=== PATIENT | male | born 1965 | race Caucasian/White ===

== ENCOUNTER 2022-05-11 08:33 | Inpatient (IN) | payer OTHER ==
[2022-05-11] MEDS ORDERED: LIDOCAINE 5% PATCH TOPICAL STA (08:48)
[2022-05-11] MEDS ORDERED: KETOROLAC 15 MG/ML 1 ML VIAL IM STA (08:48)
[2022-05-11] MEDS ORDERED: methocarbamoL 500 MG TAB PO STA (08:48)
[2022-05-11] MEDS ORDERED: HYDROcodone/APAP 7.5-325MG 1 EACH TAB PO ONE (08:50)
--- NOTE | 2022-05-11 08:56 | ED ---
General Adult HPI - General Chief complaint: Back Pain/Injury Stated complaint: Back pain, pinch nerve Time Seen by Provider: 05/11/22 08:39 Source: patient, RN notes reviewed, old records reviewed Mode of arrival: ambulatory Limitations: no limitations - History of Present Illness Initial comments: Patient is an 18-year-old female with past medical history remarkable for lumbar back surgery, hyperlipidemia who presents emergency Department complaining of left-sided back pain with radiation down the posterior aspect of his left leg. Does have a history of lumbar spine surgery, with residual tingling and numbness along the lower aspect of the left leg and a little bit on the right leg. States that 2 days ago Claude brank of the top of his car when he suddenly experienced left-sided back pain. States this only gotten worse. States the pain radiates down the posterior aspect of his left leg. Denies pain in the midline of the spine. States the pain is gone so severe that he is having difficulty walking and moving. Denies urinary or bowel incontinence or retention. Denies saddle anesthesias. Denies lower extremity focal weakness. Is able to pinpoint the pain over the left paraspinal muscles as well as left sided posterior pelvic rim. Patient otherwise has no acute complaints at this time. Presents for further evaluation. Believes he pinched a nerve. - Related Data Home Medications Medication Instructions Recorded Confirmed Ezetimibe [Zetia] 10 mg PO DAILY 05/11/22 05/11/22 Rosuvastatin Calcium 5 mg PO DAILY 05/11/22 05/11/22 Allergies Allergy/AdvReac Type Severity Reaction Status Date / Time No Known Allergies Allergy Verified 05/11/22 08:39 Review of Systems ROS Statement: Those systems with pertinent positive or pertinent negative responses have been documented in the HPI. Review of Systems: CONST: Denies fever EYES: Denies blurry vision ENT: Denies nasal congestion C/V: Denies Chest pain RESP: Denies shortness of breath GI: Denies abdominal pain : Denies dysuria SKIN: Denies rash. MSK: Endorses back pain. NEURO: Denies headache ROS Other: All systems not noted in ROS Statement are negative. Past Medical History Past Medical History: Hyperlipidemia Additional Past Medical History / Comment(s): back pain History of Any Multi-Drug Resistant Organisms: None Reported Past Surgical History: Back Surgery Past Psychological History: No Psychological Hx Reported Smoking Status: Never smoker Past Alcohol Use History: None Reported Past Drug Use History: None Reported General Exam - General Exam Comments Initial Comments: General: Appears in moderate distress secondary to left-sided back pain. HEAD: Normal with no signs of head trauma. EYES: EOMI ENT: Hearing grossly intact RESPIRATORY: Respiratory distress. Clear breath sounds bilaterally. C/V: Regular rate and rhythm. S1 and S2 auscultated. Peripheral pulses 2+ intact throughout. ABD: Abdomen is soft, nontender, nondistended. EXT:Left sided paraspinal muscle tenderness. Localized to the left lateral back. No midline cervical, thoracic, lumbar spine tenderness palpation. Somewh at tender to palpation in the left paraspinal muscles in the lower lumbar spine as well as along the pelvic brim. Radiates into left buttock. worsening pain with movement of left lower extremity. SKIN: No rashes or lesions observed on exposed skin. NEURO: Alert and oriented 4. No focal acute sensory or strength deficits. No saddle anesthesia. Limitations: no limitations Course Vital Signs 05/11/22 08:37 Temperature 98 F Pulse Rate 118 H Respiratory 18 Rate Blood Pressure 139/78 O2 Sat by Pulse 97 Oximetry Medical Decision Making - Medical Decision Making Based on the patient's presentation and physical exam, I'm concerned for lumbar spine injury or nerve compression. He seems to have weakness in the left leg but mostly secondary to pain. No other red flag symptoms at this time including lack of saddle anesthesias or urinary or bowel incontinence or poor control. I did discuss with him that I would like to obtain CT imaging to evaluate his spine and pelvis. He was in agreement with this plan. May require inpatient admission for MRI due to the extreme pain that he has been with any ambulation. Is given analgesia medications. There was a delay in obtaining CT imaging due to critical patient's presenting, but was positive for disc herniation at L4-L5 which is known with some mild to moderate central canal stenosis. There is also stenosis of the left neural foramen. CT pelvis shows no acute findings. On reevaluation, patient is still in extreme pain. Pain with any movement or walking. Did offer him observation admission for inpatient MRI which she accepted. Orthopedics will be consulted and patient did request Dr. Montgomery. I consulted the orthopedic surgeon Dr. Valera who is in his group and on-call. MRI was ordered. I spoke with the admitting physician Dr. Fernando who accepted the patient. Patient was admitted in stable condition. Disposition Clinical Impression: Lumbar back pain, Lumbar radiculopathy, Lumbar disc herniation Disposition: ADMITTED IP TO THIS HOSP Condition: Stable Time of Disposition: 12:00
--- NOTE | 2022-05-11 10:38 | CT ---
EXAMINATION TYPE: CT lumbar spine wo con CT DLP: 1081 mGycm, Automated exposure control for dose reduction was used. DATE OF EXAM: 05/11/2022 10:24 AM COMPARISON: CT pelvis of the same day. CLINICAL INDICATION:Male, 56 years old with history of pain, history of surgery; PHH, Low back pain, no injury. TECHNIQUE: Multiple axial images were obtained from the midportion of T11 through the sacroiliac dee nts. Soft tissue and bone windows in coronal and sagittal planes were obtained and reviewed. 3-D ref ormats of the bones were created on a separate workstation and submitted for review. FINDINGS: Alignment: There are 5 lumbar type vertebral bodies within normal alignment. Bone: No evidence of fracture is identified. Discs: T12-L1: No spinal canal or neural foraminal stenosis is identified. L1-L2: No spinal canal or neural foraminal stenosis is identified. L2-L3: No spinal canal or neural foraminal stenosis is identified. L3-L4: No spinal canal or neural foraminal stenosis is identified. L4-L5: Broad-based disc bulge without significant effacement of thecal sac. No neural foraminal sten osis. L5-S1: Central disc herniation with mild to moderate effacement of anterior thecal sac. Mild narrowin g of the left neural foramen. Other: Subcentimeter hypodensity within the right hepatic lobe which is too small to characterize. IMPRESSION: 1. No evidence of fracture of the lumbar spine. 2. Disc herniation L4-L5 with mild to moderate central canal stenosis. Additionally there is mild brandan nosis of the left neural foramen. This can be further evaluated on MRI lumbar spine without IV contra st.
--- NOTE | 2022-05-11 10:42 | CT ---
EXAMINATION TYPE: CT pelvis wo con CT DLP: 365.7 mGycm, Automated exposure control for dose reduction was used. DATE OF EXAM: 05/11/2022 10:24 AM COMPARISON: CT lumbar spine of the same date. CLINICAL INDICATION:Male, 56 years old with history of pain, history of surgery; Low back pain, no in jury. TECHNIQUE: Standard CT of the pelvis without IV or oral contrast. Lack of IV or oral contrast limit s evaluation of solid and hollow organ viscera. FINDINGS: BLADDER: Unremarkable REPRODUCTIVE: Unremarkable. VISUALIZED BOWEL: No focal wall thickening or surrounding inflammatory changes. The appendix is withi n normal limits. No evidence of bowel obstruction. PERITONEUM: No evidence of pneumoperitoneum or free fluid. VASCULATURE: Visualized portions unremarkable. MUSCULOSKELETAL: No acute osseous abnormalities. No concerning osseous lesion. Please refer to dedica sophia lumbar spine for findings. LYMPH NODES: No gross evidence for lymphadenopathy. SOFT TISSUE/ABDOMINAL WALL: Small fat filled lumbrical hernia. IMPRESSION: 1. No acute pelvic process. 2. Please refer to concurrent dedicated lumbar spine for findings.
[2022-05-11] MEDS ORDERED: GABAPENTIN 100 MG CAP PO STA (11:58)
[2022-05-11] MEDS ORDERED: NALOXONE 0.4 MG/ML 1 ML VIAL IV PRN (12:26)
[2022-05-11] MEDS ORDERED: ONDANSETRON 4 MG/2 ML VIAL IVP PRN (13:06)
[2022-05-11] MEDS ORDERED: ACETAMINOPHEN TAB 325 MG TAB PO PRN (13:06)
[2022-05-11 13:12] LABS: Basophils # (A) 0.1 k/uL (0-0.2); Basophils % (A) 1 %; Eosinophils % (A) 1 %; HCT 48.7 % (39.0-53.0); Lymphocytes # (A) 1.5 k/uL (1.0-4.8); Lymphocytes % (A) 22 %; MCH 30.3 pg (25.0-35.0); MCHC 32.9 g/dL (31.0-37.0); MCV 92.1 fL (80.0-100.0); Mean Platelet Volume 6.7; Monocytes # (A) 0.4 k/uL (0-1.0); Monocytes % (A) 5 %; Neutrophils # (A) 4.7 k/uL (1.3-7.7); Neutrophils % (A) 69 %; Platelet Count 238 k/uL (150-450); RBC 5.29 m/uL (4.30-5.90); RDW 12.4 % (11.5-15.5); WBC 6.9 k/uL (3.8-10.6)
[2022-05-11 13:23] LABS: Potassium 4.4 mmol/L (3.5-5.1)
[2022-05-11] MEDS: MORPHINE SULFATE 4 MG/ML SYRINGE IVP PRN ×3 (13:26→22:43)
--- NOTE | 2022-05-11 15:57 | MR ---
EXAMINATION TYPE: MR lumbar spine wo con DATE OF EXAM: 05/11/2022 COMPARISON: Same-day CT lumbar spine study HISTORY: Lumbar pain, radiculopathy TECHNIQUE: Multiplanar, multisequence imaging of the lumbar spine is performed without IV contrast. FINDINGS: Sagittal images of the lumbar spine show vertebral body heights and alignment to remain sat isfactory. Multilevel disc desiccation with mild to moderate disc space narrowing L5-S1 level. The c onus medullaris is normal in position and signal ending at T12-L1 disc space level. The bone marrow signal intensity is within normal limits. Axial images show T12-L1 through L2-L3 levels to appear within normal limits. Axial images at the L3-L4 level shows a right lateral disc protrusion with annular tear causing mild to moderate inferior left-sided neural foraminal narrowing. Axial images at L4-L5 level show mild to moderate facet arthropathy bilaterally mildly effacing poste rior lateral thecal sac. Bilateral neural foramina are patent. Axial images at L5-S1 level shows focal left paracentral/foraminal spur disc complex effacing the ant erolateral thecal sac along with lateral recess and the central left S1 nerve seen best on axial imag e 3 and 4. Focal moderate to severe left-sided neural foraminal narrowing sagittal image 5 and axial image 3. Paraspinal muscle bulk is preserved. IMPRESSION: Some degenerative change in the mid to lower lumbar spine as detailed above with most pro minent findings at L5-S1 level. Effacement of the central left S1 nerve is present. Correlate clinica lly.
--- NOTE | 2022-05-11 16:16 | P.HPIM ---
History of Present Illness H&P Date: 05/11/22 Chief Complaint: back pain Patient is a 56-year-old male with a history of lumbar back surgery, hyperlipidemia, who presents emergency department complaining of lower back pain for the last 4 days. He was in his normal state of health Sunday when he was attempting to remove a kayak from his car. He experienced sudden onset lower back pain, more so on the left side that radiated down to his leg. The pain continued to worsen over the following 2 days, yesterday he went to a chiropractor and had musculoskeletal manipulation of his lower back but this unfortunately worsened his pain. This morning he was in excruciating pain and was having difficulty ambulating. He did not have any focal weakness however. He does have residual numbness along the lower aspect of his left leg from previous surgery which has not changed. Denies any saddle anesthesia, no loss of bowel or bladder control. He appeared to be in significant distress in the ED and has required several doses of narcotics to control his pain. He will be admitted for an MRI of the lumbar with orthopedic surgery consult. Review of Systems Constitutional: Reports as per HPI Past Medical History Past Medical History: Hyperlipidemia Additional Past Medical History / Comment(s): Numbness/tingling lower L leg and alittle in R leg from previous back problems History of Any Multi-Drug Resistant Organisms: None Reported Past Surgical History: Back Surgery Additional Past Surgical History / Comment(s): Lumbar surgery Past Anesthesia/Blood Transfusion Reactions: No Reported Reaction Smoking Status: Never smoker - Past Family History Father Family Medical History: Coronary Artery Disease (CAD) Mother Additional Family Medical History / Comment(s): Mother has a pacemaker. Medications and Allergies Home Medications Medication Instructions Recorded Confirmed Type Ezetimibe [Zetia] 10 mg PO DAILY 05/11/22 05/11/22 History Rosuvastatin Calcium 5 mg PO DAILY 05/11/22 05/11/22 History Allergies Allergy/AdvReac Type Severity Reaction Status Date / Time No Known Allergies Allergy Verified 05/11/22 08:39 Physical Exam Osteopathic Statement: *. No significant issues noted on an osteopathic structural exam other than those noted in the History and Physical/Consult. Vitals: Vital Signs Temp Pulse Resp BP Pulse Ox 05/11/22 08:37 98 F 118 H 18 139/78 97 Intake and Output 05/11/22 05/11/22 05/11/22 06:59 14:59 22:59 Other: Weight 85.275 kg - Constitutional General appearance: average body habitus, cooperative, mild distress - EENT Eyes: EOMI, PERRLA - Neck Neck: normal ROM - Respiratory Respiratory: bilateral: CTA - Cardiovascular Rhythm: regular Heart sounds: normal: S1, S2 Abnormal Heart Sounds: no systolic murmur - Gastrointestinal General gastrointestinal: no distended, normal bowel sounds, no tenderness - Integumentary Integumentary: no cellulitis, no cyanotic, no jaundiced - Neurologic Neurologic: CNII-XII intact - Musculoskeletal Musculoskeletal: strength equal bilaterally, no right sided weakness, no left sided weakness - Psychiatric Psychiatric: A&O x's 3, appropriate affect Results CBC & Chem 7: 05/11/22 12:56 05/11/22 12:56 Thrombosis Risk Factor Assmnt - Choose All That Apply Any of the Below Risk Factors Present?: Yes Each Factor Represents 1 point: Age 41-60 years, Obesity (BMI >25) Other Risk Factors: No Other congenital or acquired thrombophilia - If yes, enter type in comment: No Thrombosis Risk Factor Assessment Total Risk Factor Score: 2 Thrombosis Risk Factor Assessment Level: Low Risk Assessment and Plan Assessment: #Intractable lower back pain -Patient has a history of radiculopathy and underwent lumbar back surgery a few years ago -No alarming signs red flags the moment, he denies any saddle anesthesia, no focal lower extremity weakness. Patient has residual left lower extremity numbness which is mild and is unchanged from his last surgery. He has had no loss of bowel or bladder control -CT of the lumbar spine shows L4-L5 disc herniation -MRI of the spine is pending -Continue pain control -Appreciate further recommendations from orthopedic surgery # Hyperlipidemia -Continue statin and ezetimibe DVT prophylaxis Anticipated discharge home in 24 hours Time with Patient: Greater than 30
[2022-05-11] MEDS: KETOROLAC 15 MG/ML 1 ML VIAL IVP PRN (18:26)
[2022-05-12] MEDS: KETOROLAC 15 MG/ML 1 ML VIAL IVP PRN ×3 (02:33→21:36)
[2022-05-12] MEDS: MORPHINE SULFATE 4 MG/ML SYRINGE IVP PRN ×3 (04:22→14:30)
--- NOTE | 2022-05-12 11:30 | P.PCN ---
Date of Procedure: 05/12/22 Description of Procedure: Procedure: 1. L4-L5 Epidural steroid injection under fluoroscopic guidance #1 2. Lumbar epidurogram 3. Left sacroiliac joint injection #1 PREOPERATIVE DIAGNOSIS: Lumbar degenerative disc disease, and Lumbar radiculopathy. POSTOPERATIVE DIAGNOSIS: Lumbar degenerative disc disease, and Lumbar radiculopathy. SURGEON: Francseca Redding ANESTHESIA: Local with 1% lidocaine, and IV sedation : None EBL: None. Specimen removed: None Fluoroscopic image: saved to electronic medical records PROCEDURE INDICATION: The patient had history of Lumbar degenerative disc disease and Lumbar radiculopathy. Failed to conservative therapy. Presented for epidural steroid injection. PROCEDURE DESCRIPTION: The patient was seen and identified in the preoperative area. Risks, benefits, complications, and alternatives were discussed with the patient. The patient agreed to proceed with the procedure and signed the consent. Patient had IV , and vital signs were stable. Patient was taken to the procedure area, and time out was completed. The patient was placed in the prone position on procedure table and a pillow was placed under the abdomen to reduce lumbar lordosis. The lumbosacral area was prepped and draped in the usual sterile fashion. Critical pause was taken. Vital signs were closely monitored during the procedure. Using anterior-posterior fluoroscopy, the L4-L5 interlaminar space was identified, and skin and deeper tissues were localized with 1% lidocaine. Using anterior-posterior fluoroscopy, lateral fluoroscopy, and [id number] technique, a 20 gauge 3.5 Tuohy epidural needle entered the epidural space. After negative aspiration of CSF and blood with no paresthesias, 2 ml of [id number] contrast dye was injected and an excellent epidurogram was seen. Again after negative aspiration of CSF and blood with no paresthesias, 10 mL of block solution was injected into the epidural space. Block solution contained 40 mg of Depo-Medrol, 3 mL of 1% lidocaine preservative-free, and 6 mL of preservative- free normal saline. Needle was withdrawn intact, skin was cleansed, and bandages were applied. COMPLICATIONS: None. PREOPERATIVE DIAGNOSIS: Left Side Sacroiliac joint dysfunction POSTOPERATIVE DIAGNOSIS: Left side Sacroiliac joint dysfunction. PROCEDURES: 1. Left side Sacroiliac joint steroid injection #1 2. Sacroiliac joint arthrogram. SURGEON: Francesca Redding ANESTHESIA: Local and IV sedation : None. EBL: None. Specimen removed: None Fluoroscopic image: saved to electronic medical records. PROCEDURE INDICATIONS: This patient with a history of chronic low back pain, and sacroiliac joint dysfunction. Patient tried conservative therapy. Came here for intervention management. PROCEDURE DESCRIPTION: After the lumbar epidural steroid injection in the o perating room. The lumbosacral area was prepped and draped in the usual sterile fashion. Critical pause was taken. Vital signs were closely monitored during the procedure. For the left side, the fluoroscopic camera was placed in right oblique view and left SI joint lower pole was identified. Skin entry point was infiltrated with 1% lidocaine and 22-gauge 3.5 inch spinal needle was introduced into the inferior one-third of SI joint and after penetrating into the joint arthrogram was done. 0.5 ml of [id number] contrast was injected after negative aspiration for blood, and air and negative for paresthesia. Good spread of the contrast into the SI joint has been seen. Then again after negative aspiration of spinal fluid and blood and negative for neurological symptoms, 3 mL of a solution conta ining total 2.5 mL of 1% preservative-free lidocaine mixed with 40 mg of Depo- Medrol was injected. Needle was withdrawn intact. Skin was cleansed, and bandages were applied. COMPLICATIONS: None. DISPOSITION / PLANS: The patient was placed in a supine position and transferred to the recovery area in a stable condition for observation. Patient was discharged from the recovery room after meeting discharge criteria. discharge instructions given to the patient by the staff to inpatient RN. The patient was reexamined prior to discharge. He can follow up with the pain clinic as needed.
--- NOTE | 2022-05-12 12:04 | FL ---
Fluoroscopy HISTORY: Pain 7 seconds fluoroscopy time supplied to the referring clinician. 5 intraoperative C-arm images docume nt the procedure. See dictated report from anesthesia.
[2022-05-12] MEDS ORDERED: MIDAZOLAM 2 MG/2 ML VIAL ONE (13:04)
[2022-05-12] MEDS ORDERED: ROPIVACAINE 5 MG/ML 30 ML VIAL ONE (13:04)
[2022-05-12] MEDS ORDERED: PROPOFOL 10 MG/ML 20 ML VIAL IV ONE (13:04)
[2022-05-12] MEDS ORDERED: GLYCOPYRROLATE 0.2 MG/ML 2 ML VIAL ONE (13:04)
[2022-05-12] MEDS ORDERED: PHENYLEPHRINE-0.9% NACL SYG 1,000 MCG/10 ML SYRINGE ONE (13:04)
[2022-05-12] MEDS ORDERED: SUCCINYLCHOLINE CHLORIDE 100 MG/5 ML SYR IV ONE (13:04)
[2022-05-12] MEDS ORDERED: LIDOCAINE 2% INJ 20 MG/ML (2 ML VIAL) ONE (13:04)
[2022-05-12] MEDS ORDERED: NEOSTIGMINE 1 MG/ML 10 ML VIAL ONE (13:04)
[2022-05-12] MEDS ORDERED: DEXAMETHASONE SOD PHOSPHATE 4 MG/ML 1 ML VIAL ONE (13:04)
[2022-05-12] MEDS ORDERED: ROCURONIUM 10 MG/ML (5 ML VIAL) IV ONE (13:04)
--- NOTE | 2022-05-12 13:04 | P.CNOR ---
History of Present Illness - [facility] Consult date: 05/12/22 Requesting physician: Vladimir Henry Consult reason: low back pain, other (L5-S1 herniated nucleus pulposus with left lower extremity radiculopathy) History of present illness: Patient is a very pleasant 56-year-old male who is seen and examined at bedside for further evaluation of his lumbar spine. Patient states on 05/08/2022, he was pulling a kayak out of his vehicle. He began to experience increased low back pain with left lower extremity radiculopathy. His symptoms continued to worsen throughout Sunday and he had difficulty with mobility at that time. He saw his chiropractor Sunday and following manipulation his symptoms have significantly worsened. He had planned to follow-up with his chiropractor later again Sunday but could not tolerate the pain. He presented to [facility] yesterday for further evaluation. CT and MRI imaging of the lumbar spine was performed. Patient was found to have a large L5-S1 left paracentral disc herniation resulting in severe left neural foraminal stenosis. Dictation from pain management states the patient underwent an L4-5 epidural steroid injection under fluoroscopic guidance and left sacroiliac joint injection. He recently returned back to his room. Since that time he states his left lower extremity pain is finally starting to improve. He has had difficulty with pain control during his admittance to the hospital prior to this injection. Patient does reside in [place]. He has a history of previous L5-S1 left-sided herniation and underwent laminectomy decompression by his surgeon in [place]. He states given the improvement of his symptoms, he would like to continue conservative treatment during his admission to the hospital. It is symptoms continue to be controlled and improve he would like to be discharged home so he can travel back to [place] to follow-up with further treatment with his surgeon in [place]. He denies any specific lower extremity weakness bilaterally. He does state the pain radiates into the left buttock and through his left leg down to the foot. He is urinating without difficulty. He is not experiencing any right lower extremity radiculopathy. He is admitted to medicine. Past Medical History Past Medical History: Hyperlipidemia Additional Past Medical History / Comment(s): Numbness/tingling lower L leg and alittle in R leg from previous back problems History of Any Multi-Drug Resistant Organisms: None Reported Past Surgical History: Back Surgery Additional Past Surgical History / Comment(s): Lumbar surgery Past Anesthesia/Blood Transfusion Reactions: No Reported Reaction Smoking Status: Never smoker - Past Family History Father Family Medical History: Coronary Artery Disease (CAD) Mother Additional Family Medical History / Comment(s): Mother has a pacemaker. Medications and Allergies Home Medications Medication Instructions Recorded Confirmed Type Ezetimibe [Zetia] 10 mg PO DAILY 05/11/22 05/11/22 History Rosuvastatin Calcium 5 mg PO DAILY 05/11/22 05/11/22 History Allergies Allergy/AdvReac Type Severity Reaction Status Date / Time No Known Allergies Allergy Verified 05/11/22 08:39 Physical Examination Osteopathic Statement: *. No significant issues noted on an osteopathic structural exam other than those noted in the History and Physical/Consult. Physical exam: Patient is awake, alert, and oriented 3 Vital signs stable Good chest excursion with deep inspiration and expiration Abdomen soft nontender Examination of lumbar spine reveals skin is intact with no abrasions, lacerations, or bruises; no erythema, purulence or signs of infection Evidence of a well-healed incision along the midline of the lumbosacral spine Evidence of a Band-Aid and intact near the midline of the lumbosacral spine following injection with pain management Dorsiflexion, plantarflexion, and extensor hallucis longus positive sustained bilaterally Motor strength of the lower extremity is 4+/5 including extensor hallucis longus on the left Rest of the lower extremity strength is 5/5 bilaterally Patellar reflex 2+ bilaterally and Achilles reflexes 2+ bilaterally No lower extremity hyperreflexia bilaterally Positive straight leg test on the left No signs or symptoms of DVT; no calf pain No pain with internal and external rotation of the hips bilaterally Neurovascularly intact Results Pertinent studies: MRI of the lumbar spine taken on 05/11/2022: L3-4 right lateral disc protrusion with annular tear; L4-5 facet arthropathy without stenosis; L5-S1 large left paracentral disc herniation, degenerative disc disease, disc desiccation resulting in severe left neural foraminal stenosis CT of the lumbar spine taken on 05/11/2022: L4-5 broad-based disc bulge without stenosis; L5-S1 central disc herniation with left neural foraminal narrowing CT the pelvis taken on 05/11/2022: No acute pelvic process - Labs Labs: H & H 05/11/22 Range/Units 12:56 Hgb 16.0 (13.0-17.5) gm/dL Hct 48.7 (39.0-53.0) % Result Diagrams: 05/11/22 12:56 05/11/22 12:56 Assessment and Plan Assessment: Assessment: #1 lumbar spondylosis without myelopathy #2 lumbar disc herniation #3 lumbar [id number]-[id number] #4 left sacroiliac joint dysfunction #5 myofascial pain syndrome #6 acute on chronic lower back pain L5-S1 recurrent left paracentral herniated nucleus pulposus L5-S1 severe left neural foraminal stenosis L5-S1 disc desiccation and degenerative disc disease Left lower extremity radiculopathy Low back pain L4-5 lumbar facet arthropathy History of previous L5-S1 laminectomy decompression performed in [place] Status post L4-5 epidural steroid injection under fluoroscopic guidance and left sacroiliac joint injection performed on 05/12/2022 Hyperlipidemia Resides out of state in [place] (1) Lumbar back pain with radiculopathy affecting left lower extremity Current Visit: Yes Status: Acute Code(s): M54.16 - RADICULOPATHY, LUMBAR REGION SNOMED Code(s): 347703215 (2) Herniated nucleus pulposus, L5-S1, left Current Visit: Yes Status: Acute Code(s): M51.27 - OTHER INTERVERTEBRAL DISC DISPLACEMENT, LUMBOSACRAL REGION SNOMED Code(s): 16638925 (3) DDD (degenerative disc disease), lumbosacral Current Visit: Yes Status: Acute Code(s): M51.37 - OTHER INTERVERTEBRAL DISC DEGENERATION, LUMBOSACRAL REGION SNOMED Code(s): 53841798 (4) Lumbar facet arthropathy Current Visit: Yes Status: Acute Code(s): M47.816 - SPONDYLOSIS W/O MYELOPATHY OR RADICULOPATHY, LUMBAR REGION SNOMED Code(s): 196469765 (5) History of laminectomy Current Visit: Yes Status: Acute Code(s): Z98.890 - OTHER SPECIFIED POSTPROCEDURAL STATES SNOMED Code(s): 339500389 (6) Hyperlipidemia Current Visit: Yes Status: Acute Code(s): E78.5 - HYPERLIPIDEMIA, UN SPECIFIED SNOMED Code(s): 30994991 Plan: Plan: 1. Patient has been experiencing significant left-sided low back pain with left lower extremity radiculopathy since 05/08/2022. His symptoms were significantly exacerbated following chiropractic manipulation on 05/10/2022. He presented to [facility] for further evaluation. Multiple imaging modalities were taken at that time. Lumbar MRI imaging shows evidence of an L5-S1 large left paracentral disc herniation resulting in severe left neural foraminal stenosis. He underwent an injection with pain management today and recently returned to his room. Since that time he states his left lower extremity leg symptoms have improved. He states this is the best his left lower extremity has felt since his admission to the hospital. He is urinating without difficulty. He denies any right lower extremity radiculopathy. He is not experiencing any acute onset lower extremity weakness. He does have some mild weakness with EHL on the left of indeterminate age. He is able to perform active range of motion with EHL on the left independently. He does have a history of previous L5-S1 laminectomy decompression performed in [place]. He does admit to some residual left lower extremity numbness following his previous surgical intervention. Given his improvement in regards to his pain, he would like to continue conservative treatment options. He has not recently followed with his surgeon [place] as his symptoms had been well- controlled following the surgical intervention. Patient states at the bedside if his symptoms continue to be controlled he would like to be discharged home so that he may travel back to [place] with plans to follow-up with his spine surgeon there. We did discuss he should plan to obtain his lumbar MRI imaging on a CD and a written report prior to his discharge home so that he may take it with him to [place] for further evaluation with his surgeon. After further discussion, patient would like to try to avoid surgical intervention during his admission here and [facility]. From an orthopedic spine standpoint, patient is cleared for discharge. If the patie nt's symptoms worsen and he is unable to be discharged for him to be able to return home, we may be contacted for further evaluation. We did discuss based on his symptoms and his imaging, he is a candidate for L5-S1 revision laminectomy decompression with discectomy. 2. Patient will continue to be seen in exam by multiple other medical providers including medicine and pain management 3. Continue pain control with medications as prescribed. We would not plan to prescribe pain medications at the time of discharge as these have been managed by medicine during his admission. Time with Patient: Greater than 30 (Including obtaining history, physical examination, reviewing of imaging, and dictation.)
--- NOTE | 2022-05-12 14:43 | P.PAINCN ---
History of Present Illness - Reason for Consult Consult date: 05/12/22 Lumbar back pain - Chief Complaint Lumbar back pain, and pain radiating to lower extremity - History of Present Illness Mr. López is a very pleasant 56-year-old male residing in [place], came to [place] for vacation- who is seen and examined at bedside for further evaluation of his lumbar back pain, pain radiating to left lower extremity. Patient states on 05/08/2022, he was pulling a kayak out of his vehicle. He began to experience increased low back pain with left lower extremity radiculopathy, causing numbness tingling sensation.. He saw his chiropractor [place] morning and following manipulation his symptoms have significantly worsened. Patient had chiropractic manipulation in the past which helped him. Today he rated his pain is 10 out of 10 in severity when walking. But during the rest with the help of pain medications pain levels are 6-7 out of 10 in severity. Patient is experiencing a lot of discomfort during the interview. Activities making his pain worse, and pain medications helping to some extent. Patient denied any depression, or suicidal tendency. Per patient is very active at home. CT and MRI imaging of the lumbar spine was performed. Patient was found to have a large L5-S1 left paracentral disc herniation resulting in severe left neural foraminal stenosis. He has a history of previous L5-S1 left-sided herniation and underwent decompression by his surgeon in [place]. He states given the improvement of his symptoms, he would like to continue conservative treatment during his admission to the hospital. He denies any specific lower extremity weakness bilaterally. He does state the pain radiates into the left buttock and through his left leg down to the foot. He is urinating without difficulty. He is not experiencing any right lower extremity radiculopathy. Patient denied any side effects of the medication. Patient had a previous L4-L5 lumbar epidural before lumbar back surgery, which helped only for a short period in relieving his pain. Review of Systems 13 point review of Systems , and symptoms negative for chest pain, shortness of breath, change in vision, abdominal pain, diarrhea, extreme fatigue, malaise, fever, skin changes, suicidal/homicidal ideas, bowel incontinence or bladder incontinence. Past Medical History Past Medical History: Hyperlipidemia Additional Past Medical History / Comment(s): Numbness/tingling lower L leg and alittle in R leg from previous back problems History of Any Multi-Drug Resistant Organisms: None Reported Past Surgical History: Back Surgery Additional Past Surgical History / Comment(s): Lumbar surgery Past Anesthesia/Blood Transfusion Reactions: No Reported Reaction Smoking Status: Never smoker - Past Family History Father Family Medical History: Coronary Artery Disease (CAD) Mother Additional Family Medical History / Comment(s): Mother has a pacemaker. Medications and Allergies Home Medications Medication Instructions Recorded Confirmed Type Ezetimibe [Zetia] 10 mg PO DAILY 05/11/22 05/11/22 History Rosuvastatin Calcium 5 mg PO DAILY 05/11/22 05/11/22 History Allergies Allergy/AdvReac Type Severity Reaction Status Date / Time No Known Allergies Allergy Verified 05/11/22 08:39 Physical Exam Vitals: Vital Signs Temp Pulse Pulse Resp BP BP Pulse Ox 05/12/22 08:00 98.1 F 78 16 119/71 96 05/12/22 02:00 98.3 F 73 14 130/82 98 05/11/22 20:00 98.3 F 73 14 130/82 98 05/11/22 17:38 98.1 F 76 18 145/87 98 05/11/22 17:17 79 18 113/73 98 Intake and Output 05/11/22 05/12/22 05/12/22 22:59 06:59 14:59 Other: Voiding Method Urinal # Voids 1 General: Well-developed, well-nourished, no acute distress HEENT: Normocephalic, and atraumatic Neck: Supple, no neck swelling Psychiatric: Appropriate mood, and affect [employer]ICE [employer]: No focal neurological deficits Musculoskeletal: Upper extremity: Normal strength, and range of motion. Sensation grossly intact Lower extremity: Normal strength, but decreased range of motion on left lower extremity secondary to pain. Sensation grossly intact. Dorsalis pedis pulse 2+ bilaterally equal Lumbar spine: Paravertebral tenderness: positive on left side Lumbar facet load test : Unable to perform SLR positive on left side Sacroiliac joint tenderness: Positive on left side Thigh thrust test: Positive on left side SI joint compression test: Positive on left side Fabere test: Positive on left side Results Results: MRI of the lumbar spine taken on 05/11/2022: L3-4 right lateral disc protrusion with annular tear; L4-5 facet arthropathy without stenosis; L5-S1 large left paracentral disc herniation, degenerative disc disease, disc desiccation resulting in severe left neural foraminal stenosis. CT of the lumbar spine taken on 05/11/2022: L4-5 broad-based disc bulge without stenosis; L5-S1 central disc herniation with left neural foraminal narrowing CT the pelvis taken on 05/11/2022: No acute pelvic process CBC & Chem 7: 05/11/22 12:56 05/11/22 12:56 Assessment and Plan Assessment: Assessment: #1 lumbar spondylosis without myelopathy #2 lumbar disc herniation #3 lumbar [id number]-uzro-fvfch #4 left sacroiliac joint dysfunction #5 myofascial pain syndrome #6 acute on chronic lower back pain L5-S1 recurrent left paracentral herniated nucleus pulposus L5-S1 severe left neural foraminal stenosis L5-S1 disc desiccation and degenerative disc disease Left lower extremity radiculopathy Low back pain L4-5 lumbar facet arthropathy History of previous L5-S1 laminectomy decompression performed in [place] Status post L4-5 epidural steroid injection under fluoroscopic guidance and left sacroiliac joint injection performed on 05/12/2022 Hyperlipidemia Resides out of state in [place] Plan: Diagnoses, prognosis, and multiple treatment options including but not limited to physical therapy, interventional therapy, adjunct medication therapy, narcotic medication, and surgical options were discussed with the patient. And all questions were answered to the patient's satisfaction. Patient counseled regarding importance of regular exercise after improved his pain after intervention procedures. consultation : Neurosurgical consultation interventional procedures: Lumbar L4-L5 epidural steroid injection, and left sacroiliac joint injection. Procedure, complications, alternatives discussed with the patient. #8 medications #1 [place] 7.5/325 by mouth Q6 hours as needed for pain #2 Zanaflex 2 mg by mouth every 8 hours as needed for muscle spasm #3 gabapentin 300 mg by mouth every 12 hours for 3 days if tolerated without any drowsy then every 8 hours for lumbar radiculopathy #4 naproxen 500 mg by mouth every 12 hours as needed, recommended to drink plenty of water to minimize kidney insult, and after food intake to minimize gastric irritation. Medication side effects, complications, long-term consequences discussed with the patient. Patient also recommended to try percussion massage device. Time with Patient: Less than 30 PQRS Measure Charge Sheet - Pain Location Lower Back Pharmacological Interventions: PRN Medication PQRS Narrative: Blood Pressure [Right Arm] 119/71 Blood Pressure 113/73 Pain Intensity [Lower Back] 9 Pain Intensity 9 Pain Scale Used Numeric (1 - 10) Scale Used Numeric (1 - 10) Home Medications: Ambulatory Orders Ezetimibe [Zetia] 10 mg PO DAILY 05/11/22 Rosuvastatin Calcium 5 mg PO DAILY 05/11/22
[2022-05-12] MEDS ORDERED: ORPHENADRINE 30 MG/ML 2 ML VIAL IVP STA (17:25)
--- NOTE | 2022-05-12 17:45 | P.PN ---
Subjective Progress Note Date: 05/12/22 Hospital course: Patient is a very pleasant 56-year-old male with a past medical history of hyperlipidemia and lumbar back surgery. He presented to the emergency department on 05/11/22 with a chief complaint of lower back pain. Patient reports he does have a history of lumbar back surgery but has not had any issues in years. Patient states he is in [place] vacationing and while removing the kayak off the roof of his car he experienced sudden onset of lower back pain radiating shooting pains down his left leg. Patient reports this pain persisted and continued to worsen resulting in difficulty with ambulation. He reports chronic residual numbness to the lateral aspect of the left lower leg and left heel which is unchanged and denies any further or worsening numbness or tingling sensations. Patient denies having any involuntary loss of bowel or bladder and denies any saddle anesthesias. CT revealed no evidence of fracture of the lumbar spine showing disc herniation of L4 and L5 with mild to moderate central canal stenosis. Patient was admitted under our services with consultation to pain management [facility] team. MRI lumbar spine without contrast was completed revealing some degenerative changes to the mid and lower lumbar spine from L5 through S1 and defacement of the central left S1 nerve present. Physical exam: Patient seen and fully evaluated at bedside this morning. He reports continued intractable lower back pain resulting in difficulty with ambulation and movement. With pain radiates down left leg, but continues to deny having any n ew or worsening numbness or focal weakness. Patient denies having any involuntary loss of bowel or bladder and denies any saddle anesthesias. Vital signs reviewed and stable. General: Nontoxic, no distress and appears stated age. Derm: Skin warm and dry, normal coloration for ethnicity. Head: Atraumatic, normocephalic and symmetric. Eyes: EOMs intact, no lid lag, and anicteric sclera Mouth: no lip lesions, mucus membranes moist Cardiovascular: regular rate and rhythm with normal S1S2, no murmur, positive posterior tibial pulses bilaterally, and cap refill < 2 seconds. Lungs: Respirations even, regular, and unlabored on room air. Lungs CTA bilaterally, no rhonchi, no rales, no wheezing, and no accessory muscle usage. Abdominal: soft, nontender to palpation, no guarding, no appreciable organomegaly Ext: ROM intact. No gross muscle atrophy, no edema, no contractures Neuro: Speech clear, face symmetrical and CN II-XII grossly intact with no noted focal neuro deficits Psych: Alert and oriented to person, place, time, and situation. Appropriate and pleasant affect. Assessment and Plan of Care: Intractable lower back pain -Orthospine surgery following -Pain management following -MRI lumbar spine without contrast was completed revealing some degenerative changes to the mid and lower lumbar spine from L5 through S1 and defacement of the central left S1 nerve present. -Symptomatic care and pain management -Fall precautions Hyperlipidemia -Heart healthy diet and continue daily medication regimen with Zetia and rosuvastatin. CODE STATUS: Full code DVT prophylaxis: SCDs Discussed with: Patient, patient's family member at bedside, and RN Anticipated discharge date: Possibly tomorrow Anticipated discharge place: Home A total of 35 minutes was spent on the care of this complex patient more than 50% of the time was spent in counseling and care coordination. I reviewed the documentation as provided by the JULIO above, who is the original author of this note. I agree with the documented assessment and plan, with the following changes: none Objective - Vital Signs Vital signs: Vital Signs Temp 98.3 F 05/12/22 02:00 Pulse 73 05/12/22 02:00 Resp 14 05/12/22 02:00 BP 130/82 05/12/22 02:00 Pulse Ox 98 05/12/22 02:00 FiO2 Intake & Output 05/11/22 05/12/22 05/12/22 18:59 06:59 18:59 Weight 85.275 kg Other: # Voids 1 - Labs CBC & Chem 7: 05/11/22 12:56 05/11/22 12:56
[2022-05-12] MEDS: ATORVASTATIN 10 MG TAB PO SCH (18:31)
[2022-05-12] MEDS: EZETIMIBE 10 MG TAB PO SCH (18:31)
[2022-05-12] MEDS: HYDROcodone/APAP 7.5-325MG 1 EACH TAB PO PRN (19:45)
[2022-05-13] MEDS: KETOROLAC 15 MG/ML 1 ML VIAL IVP PRN ×2 (05:48→15:34)
[2022-05-13] MEDS: HYDROcodone/APAP 7.5-325MG 1 EACH TAB PO PRN (07:02)
[2022-05-13] MEDS: EZETIMIBE 10 MG TAB PO SCH (07:03)
[2022-05-13] MEDS: ATORVASTATIN 10 MG TAB PO SCH (07:04)
[2022-05-13] MEDS: ENOXAPARIN 40 MG/0.4 ML SYRINGE SQ SCH (07:04)
[2022-05-13] MEDS: MORPHINE SULFATE 4 MG/ML SYRINGE IVP PRN (08:13)
[2022-05-13] MEDS ORDERED: ORPHENADRINE 30 MG/ML 2 ML VIAL IVP STA (09:30)
[2022-05-13] MEDS ORDERED: HYDROmorphone 1 MG/ML 1 ML SYRINGE IVP STA (09:31)
[2022-05-13] MEDS: diazePAM 5 MG TAB PO PRN (15:34)
--- NOTE | 2022-05-13 16:35 | P.PN ---
Subjective Progress Note Date: 05/13/22 Hospital course: Patient is a very pleasant 56-year-old male with a past medical history of hyperlipidemia and lumbar back surgery. He presented to the emergency department on 05/11/22 with a chief complaint of lower back pain. Patient reports he does have a history of lumbar back surgery but has not had any issues in years. Patient states he is [place] [facility] and while removing the kayak off the roof of his car he experienced sudden onset of lower back pain radiating shooting pains down his left leg. Patient reports this pain persisted and continued to worsen resulting in difficulty with ambulation. He reports chronic residual numbness to the lateral aspect of the left lower leg and left heel which is unchanged and denies any further or worsening numbness or tingling sensations. Patient denies having any involuntary loss of bowel or bladder and denies any saddle anesthesias. CT revealed no evidence of fracture of the lumbar spine showing disc herniation of L4 and L5 with mild to moderate central canal stenosis. Patient was admitted under our services with consultation to pain management [facility]. MRI lumbar spine without contrast was completed revealing some degenerative changes to the mid and lower lumbar spine from L5 through S1 and defacement of the central left S1 nerve present. Physical exam: Patient seen and fully evaluated at bedside this morning. He reports continued intractable lower back pain and no improvement. He continues to deny having any new or worsening numbness or focal weakness and continues to deny having any involuntary loss of bowel or bladder. Additional pain medications ordered Dilaudid 1 mg IVP 1 dose and Norflex 60 mg IVP 1 dose. [facility] surgery team was notified of persistent intractable lower back pain. Awaiting further recommendations at this time. Vital signs reviewed and stable. General: Nontoxic, no distress and appears stated age. Derm: Skin warm and dry, normal coloration for ethnicity. Head: Atraumatic, normocephalic and symmetric. Eyes: EOMs intact, no lid lag, and anicteric sclera Mouth: no lip lesions, mucus membranes moist Cardiovascular: regular rate and rhythm with normal S1S2, no murmur, positive posterior tibial pulses bilaterally, and cap refill < 2 seconds. Lungs: Respirations even, regular, and unlabored on room air. Lungs CTA bilaterally, no rhonchi, no rales, no wheezing, and no accessory muscle usage. Abdominal: soft, nontender to palpation, no guarding, no appreciable organomegaly Ext: ROM intact. No gross muscle atrophy, no edema, no contractures Neuro: Speech clear, face symmetrical and CN II-XII grossly intact with no noted focal neuro deficits Psych: Alert and oriented to person, place, time, and situation. Appropriate and pleasant affect. Assessment and Plan of Care: Intractable lower back pain -Orthospine surgery following, per RN orthospine surgery team planning to take patient for surgical intervention 05/14/22. -Pain management following -MRI lumbar spine without contrast was completed revealing some degenerative changes to the mid and lower lumbar spine from L5 through S1 and defacement of the central left S1 nerve present. -Symptomatic care and pain management -Fall precautions Hyperlipidemia -Heart healthy diet and continue daily medication regimen with Zetia and rosuvastatin. CODE STATUS: Full code DVT prophylaxis: SCDs Discussed with: Patient, patient's family member at bedside, and RN Anticipated discharge date: Clinical course to determine Anticipated discharge place: Home A total of 35 minutes was spent on the care of this complex patient more than 50% of the time was spent in counseling and care coordination. Objective - Vital Signs Vital signs: Vital Signs Temp 97.8 F 05/13/22 07:01 Pulse 76 05/13/22 07:01 Resp 16 05/13/22 07:01 BP 130/79 05/13/22 07:01 Pulse Ox 97 05/13/22 07:01 FiO2 Intake & Output 05/12/22 05/13/22 05/13/22 18:59 06:59 18:59 Intake Total 360 1000 Balance 360 1000 Intake: Oral 360 1000 Other: Voiding Method Urinal # Voids 4 2 - Labs CBC & Chem 7: 05/11/22 12:56 05/11/22 12:56
[2022-05-13] MEDS: HYDROmorphone 1 MG/ML 1 ML SYRINGE IVP PRN ×2 (18:26→22:27)
--- NOTE | 2022-05-13 18:52 | XR ---
EXAMINATION TYPE: XR chest 1V portable DATE OF EXAM: 05/13/2022 COMPARISON: NONE HISTORY: Preop TECHNIQUE: Single view FINDINGS: Heart and mediastinum are normal. Lungs are clear. Diaphragm is normal. Bony thorax appears normal. IMPRESSION: Normal chest
[2022-05-13 19:25] LABS: INR 0.9 (<1.2); Prothrombin Time 10.3 sec (9.0-12.0)
[2022-05-13 23:01] LABS: Appearance,Urine Clear (Clear); Bilirubin,Urine Negative (Negative); Blood,Urine Trace (Negative); Color,Urine Yellow; Glucose,Urine (UA) Trace (Negative); Ketones,Urine Negative (Negative); Leukocyte Esterase,Urine Negative (Negative); Mucus,Urine Occasional /hpf; Nitrite,Urine Negative (Negative); PH, Urine 5.5 (5.0-8.0); Protein,Urine Trace (Negative); RBC,Urine 1 /hpf (0-5); Urobilinogen,Urine <2.0 mg/dL (<2.0); WBC,Urine <1 /hpf (0-5)
[2022-05-14] MEDS: HYDROmorphone 1 MG/ML 1 ML SYRINGE IVP PRN ×3 (04:50→22:25)
[2022-05-14] MEDS: ENOXAPARIN 40 MG/0.4 ML SYRINGE SQ SCH (07:51)
[2022-05-14] MEDS: ATORVASTATIN 10 MG TAB PO SCH (07:51)
[2022-05-14] MEDS: EZETIMIBE 10 MG TAB PO SCH (07:51)
--- NOTE | 2022-05-14 09:16 | P.CNOR ---
History of Present Illness - HPI Consult date: 05/14/22 Consult reason: other History of present illness: The patient is seen and examined today at bedside he is a very pleasant 56-year-old male with severe low back and left lower extremity pain and weakness in his left lower extremity. We had seen him a couple of days ago because his pain was unrelenting and he was essentially incapacitated due to his pain. His found have a large disc herniation at L5-S1 which was a source of his symptomatology. He's had prior history of issues with his low back in the past and had a laminectomy discectomy at that level off years ago. He had done very well and was quite active. This current pain started when he was removing a kayak off the top his car he twisted and felt some sudden pain in his back and worsening pain in his left lower extremity. He had undergone a epidural steroid injection on Sunday and we were hopeful that it would help alleviate some of his pain so that he would be able to mobilize and discharge from the hospital to return home to [place] as he is here medication. However he has not had any relief with that at all. His leg continues to have severe incapacitating pain where he is unable to get out of bed on his own and he has weakness over and S1 distribution. Denies any nausea or vomiting. He denies any fevers or chills. Denies any change in bowel bladder function. Review of Systems As per his HPI. Denies any chest pain shortness breath Past Medical History Past Medical History: Hyperlipidemia Additional Past Medical History / Comment(s): Numbness/tingling lower L leg and alittle in R leg from previous back problems. History of laminectomy discectomy at L5-S1 on the left approximately 2 years ago History of Any Multi-Drug Resistant Organisms: None Reported Past Surgical History: Back Surgery Additional Past Surgical History / Comment(s): Lumbar surgery Past Anesthesia/Blood Transfusion Reactions: No Reported Reaction Smoking Status: Never smoker - Past Family History Father Family Medical History: Coronary Artery Disease (CAD) Mother Additional Family Medical History / Comment(s): Mother has a pacemaker. Medications and Allergies Home Medications Medication Instructions Recorded Confirmed Type Ezetimibe [Zetia] 10 mg PO DAILY 05/11/22 05/11/22 History Rosuvastatin Calcium 5 mg PO DAILY 05/11/22 05/11/22 History Allergies Allergy/AdvReac Type Severity Reaction Status Date / Time No Known Allergies Allergy Verified 05/11/22 08:39 Physical Examination Osteopathic Statement: *. No significant issues noted on an osteopathic structural exam other than those noted in the History and Physical/Consult. - L Spine: dermatomal strength & reflexes left Strength: ankle plantar flexion: 4/5 (Has left lower extremity has some slight weakness with plantar flexion about 4 out of 5. He has positive straight leg raise. He has positive Lasegue's. No pain with internal extrication of his hips. Right large semi-has full strength. His low back is a well-healed midline incision) Results - Labs Labs: Abnormal Lab Results - Last 24 Hours (Table) 05/13/22 Range/Units 22:45 Urine Protein Trace H (Negative) Urine Glucose (UA) Trace H (Negative) Urine Blood Trace H (Negative) Urine Mucus Occasional H (None) /hpf H & H 05/11/22 Range/Units 12:56 Hgb 16.0 (13.0-17.5) gm/dL Hct 48.7 (39.0-53.0) % Coagulation 05/13/22 Range/Units 19:03 INR 0.9 (<1.2) Result Diagrams: 05/11/22 12:56 05/11/22 12:56 - Diagnostic results Cervical MRI with/without contrast: report reviewed, image reviewed (An MRI performed this week shows a large disc herniation L5-S1 with extruded fragment. His prior laminectomy at that level. He has severe left foraminal stenosis.) Assessment and Plan Assessment: Recurrent L5-S1 disc herniation with extruded fragment and left lower extremity stenosis with left lower extremity radiculopathy and weakness Inability to ambulate Incapacitating pain No relief despite aggressive conservative treatment thus far (1) Lumbar back pain with radiculopathy affecting left lower extremity Current Visit: Yes Status: Acute Code(s): M54.16 - RADICULOPATHY, LUMBAR REGION SNOMED Code(s): 164422269 (2) Herniated nucleus pulposus, L5-S1, left Current Visit: Yes Status: Acute Code(s): M51.27 - OTHER INTERVERTEBRAL DISC DISPLACEMENT, LUMBOSACRAL REGION SNOMED Code(s): 76729379 (3) DDD (degenerative disc disease), lumbosacral Current Visit: Yes Status: Acute Code(s): M51.37 - OTHER INTERVERTEBRAL DISC DEGENERATION, LUMBOSACRAL REGION SNOMED Code(s): 58378822 (4) Lumbar facet arthropathy Current Visit: Yes Status: Acute Code(s): M47.816 - SPONDYLOSIS W/O MYELOPATHY OR RADICULOPATHY, LUMBAR REGION SNOMED Code(s): 299637071 (5) History of laminectomy Current Visit: Yes Status: Acute Code(s): Z98.890 - OTHER SPECIFIED POSTPROCEDURAL STATES SNOMED Code(s): 275752762 (6) Hyperlipidemia Current Visit: Yes Status: Acute Code(s): E78.5 - HYPERLIPIDEMIA, UNSPECIFIED SNOMED Code(s): 79758084 Plan: Recurrent L5-S1 disc herniation with extruded fragment and left lower extremity stenosis with left lower extremity radiculopathy and weakness Inability to ambulate Incapacitating pain No relief despite aggressive conservative treatment thus far The patient has a recurrent disc herniation at L5-S1 with extruded fragment which is causing his left lower extremity radiculopathy and left lower extremity weakness. He has not had any response despite conservative treatment and epidural steroid injection. He feels he is worsening and is incapacitated with his pain unable to get out of bed and ambulate. With his severe symptoms and his recurrent disc think that he could do well with a revision laminectomy and discectomy at L5- S1. I think this would give him a good chance of improving his pain and potentially helping alleviate his debility. It would also give him best chance of improved strength at the left lower extremity. I discussed the risk of occasions alternatives benefits at length with him. I discussed the risk of bleeding risk infection was need for further surgery risk of decreased loss of motion loss function the possible need for further surgery as well as the fact that surgery may not alleviate his symptoms was explained. He understands the risks of anesthesia in terms of his heart and lungs and medical health. We discussed the risk of dural tear as well. I answered all his questions to the best my ability and leg which he can understand and he is agreeable to proceed with surgical intervention for revision laminectomy discectomy at L5-S1 in the operating room
[2022-05-14] MEDS ORDERED: LACTATED RINGERS 1,000 ML IV ONE (09:26)
[2022-05-14] MEDS ORDERED: SODIUM CHLORIDE 0.9% 100 ML with ceFAZolin 2 GM IV ONE ×2 (09:40)
[2022-05-14] MEDS ORDERED: BUPIVACAIN-EPI 0.25%-1:200,000 30 ML VIAL SQ ONE (09:51)
[2022-05-14] MEDS ORDERED: GELATIN SPONGE,ABSORB (SMALL) 1 EACH SPONGE TOPICAL ONE (09:58)
[2022-05-14] MEDS ORDERED: THROMBIN (BOVINE) 5,000 UNIT VIAL TOPICAL ONE (09:58)
--- NOTE | 2022-05-14 10:16 | XR ---
Fluoroscopy History: Hardware placement 1 second of fluoroscopic time and 1 film are submitted for hardware placement.
--- NOTE | 2022-05-14 11:42 | P.OP ---
Date of Procedure: 05/14/22 Preoperative Diagnosis: Recurrent disc herniation L5-S1, lower extremity radiculopathy, lower extremity weakness, history of laminectomy discectomy L5-S1 approximately 2 years ago at outside institution Postoperative Diagnosis: Recurrent disc herniation L5-S1, lower extremity radiculopathy, lower extremity weakness, history of laminectomy discectomy L5-S1 approximately 2 years ago at outside institution Anesthesia: GETA Pathology: none sent Condition: stable Disposition: PACU Description of Procedure: BRIEF OPERATIVE NOTE Preoperative Diagnosis:Recurrent disc herniation L5-S1, lower extremity radiculopathy, lower extremity weakness, history of laminectomy discectomy L5-S1 approximately 2 years ago at outside institution Postoperative Diagnosis:Recurrent disc herniation L5-S1, lower extremity radiculopathy, lower extremity weakness, history of laminectomy discectomy L5-S1 approximately 2 years ago at outside institution Procedure: Revision Laminectomy and decompression, with partial medial facetectomy and foraminotomy for decompression Revision Discectomy for decompression Use of fluoroscopic guidance for surgery Surgeon: Dr. Montgomery Multi Operation Forming Machine Setter: first Asst. Anesthesia: General anesthesia Estimated blood loss: Approximately 100 mL Complications: None apparent Components implanted: None Disposition: To recovery room in good stable condition. OPERATIVE INDICATIONS The patient has been having issues in their lower back and lower extremities with severe pain and inability to ambulate due to his back pain and left lower extremity pain. Patient was incapacitated due to his pain and presented to the hospital. Days ago after lifting and moving a kayak had sudden acute pain at his back and left lower extremity. The patient was attempting aggressive conservative treatment including epidural steroid injections both having no relief at all. Patient is having weakness in his left lower extremity over an S1 distribution which correlated well with his MRI findings of a large recurrent disc herniation with severe stenosis on the left and extruded fragment. The patient has been through conservative treatment. We discussed various treatment options including surgery, and the patient wishes to proceed with surgery We discussed the risk, patient's alternatives and benefits of surgery including but not limited to, risk of bleeding risk of infection, risk of need for further surgery, risk of decreased, loss of motion, loss of function, nerve damage, paralysis, heart attack, blindness and . OPERATIVE SUMMARY After discussing all the risks, patient alternatives and benefits at length, the patient elected to proceed with surgical intervention, signed informed consent, and presented for their procedure. The patient was seen and examined in the preoperative holding area and the surgical site was marked. The patient was given antibiotics and brought to the operating room. The patient was sedated and intubated by anesthesia in standard fashion. The patient was positioned on to the operating room table in a prone position on the appropriate frame which was well-padded and well molded. We were careful to pad any bony prominences and pressure points. We were careful to maintain the patient's cervical spine and good neutral alignment and position throughout. The patient was prepped and draped in a normal standard fashion. An appropriate timeout and keystone protocol performed. We were able to proceed with the surgery. Fluoroscopy was utilized to establish the appropriate level. The local wound area was infiltrated with local anesthetic over the area of his prior incision at L5-S1. An incision was made at the midline longitudinally over the appropriate levels at L5-S1 utilizing the prior incision approximately 3 cm in length. Dissection was taken down subcutaneously to the level of the fascia which was split midline. Dissection was taken over the lamina. Intraoperative fluoroscopy was taken which showed a marker at the appropriate level at L5-S1. With the appropriate level positively confirmed, we were able to proceed with revision laminectomy. The wound was copiously irrigated and suctioned dry as had been done periodically throughout the case. Note was made of significant scar tissue formation at the interlaminar space. This was significantly adhesed to the dura over the area and I had to do further laminectomy and partial medial facetectomy in order to get around the scar tissue in between access to the epidural space. This took extra care and time and meticulous technique in order to avoid damage at the neural structures given the scar tissue which was adherent. I performed a laminectomy with a combination of curettes and a high-speed bur and Kerrison rongeurs. I extended the prior laminectomy with A small medial facetectomy was performed again further access. A partial foraminotomy was also performed. Much of the ligamentum flavum had been removed and there was significant scar tissue over the interlaminar space. Portions of the ligamentum flavum were taken down to expose the dura and traversing nerve root. The nerve root was se verely compressed at the subarticular space and there was very little mobility for the dura given the scar tissue and the herniation. I was able to mobilize the traversing nerve root and gain access to the disc space. Note was made of obvious compression from the disc. I extended the rent at the disc space with annulotomy. Protecting the soft tissue structures, a small annulotomy was established. There was significant posterior spur extending down from L5 which was bony and had to be removed as well. I was able to perform discectomy and remove any extruded disc fragments and any loose fragments from within the disc itself. There is some disc desiccation noted. There is significant disc loss at the greater body space. I tried to preserve the disc annulus that appeared stable. There were no further extruded fragments noted. There is no evidence of dural tear or leak. Good hemostasis maintained. The wound was copiously irrigated and suctioned dry. Good decompression and discectomy was noted. We were able to proceed with closure. The fascia was closed for a watertight closure. The subcuticular tissue was closed with absorbable suture. The wound was cleaned and dried and dressed with the appropriate dressing. The drapes were broken down. The patient was gently rolled back onto their hospital bed being careful to maintain their cervical spine and good neutral alignment and position. They were woken up by anesthesia, extubated, and brought to the recovery room in good stable condition. The patient will be admitted to the hospital for observation and for appropriate postoperative care, medical management and monitoring. We will continue to follow them closely about the postoperative course.
--- NOTE | 2022-05-14 14:11 | P.PN ---
Subjective Progress Note Date: 05/14/22 Hospital course: Patient is a very pleasant 56-year-old male with a past medical history of hyperlipidemia and lumbar back surgery. He presented to the emergency department on 05/11/22 with a chief complaint of lower back pain. Patient reports he does have a history of lumbar back surgery but has not had any issues in years. Patient states he is in [place] vacationing and while removing the kayak off the roof of his car he experienced sudden onset of lower back pain radiating shooting pains down his left leg. Patient reports this pain persisted and continued to worsen resulting in difficulty with ambulation. He reports chronic residual numbness to the lateral aspect of the left lower leg and left heel which is unchanged and denies any further or worsening numbness or tingling sensations. Patient denies having any involuntary loss of bowel or bladder and denies any saddle anesthesias. CT revealed no evidence of fracture of the lumbar spine showing disc herniation of L4 and L5 with mild to moderate central canal stenosis. Patient was admitted under our services with consultation to pain management [facility]. MRI lumbar spine without contrast was completed revealing some degenerative changes to the mid and lower lumbar spine from L5 through S1 and defacement of the central left S1 nerve present. Patient underwent L4 through L5 epidural steroid injection and left sacroiliac joint injection under fluoroscopic guidance on 05/12/22. Patient continued to have significant intractable lower back pain. He was taken to surgery and underwent revision laminectomy and decompression with partial medial facetectomy and foraminotomy for decompression and revision discectomy for decompression of L5 through S1 by Dr. Montgomery on 05/14/22. Physical exam: Patient seen and fully evaluated at bedside upon returning from surgery. At this time patient reports being completely free from any pain or discomfort. He reported continued numbness to left lateral lower leg and states this is at its baseline from previous surgery 2 years ago and denies any worsening in her changes in this. Patient's mother at bedside, states that she does not feel comfortable taking patient home this afternoon as she wants to ensure that his pain is controlled prior to discharge. Patient lives in [place] but does plan on staying in [place] for a couple more days after this surgery prior to returning home. At this time plan is to monitor patient overnight to ensure pain is controlled and patient is able to urinate without any difficulties. Vital signs reviewed and stable. General: Nontoxic, no distress and appears stated age. Derm: Skin warm and dry, normal coloration for ethnicity. Head: Atraumatic, normocephalic and symmetric. Eyes: EOMs intact, no lid lag, and anicteric sclera Mouth: no lip lesions, mucus membranes moist Cardiovascular: regular rate and rhythm with normal S1S2, no murmur, positive posterior tibial pulses bilaterally, and cap refill < 2 seconds. Lungs: Respirations even, regular, and unlabored on room air. Lungs CTA b ilaterally, no rhonchi, no rales, no wheezing, and no accessory muscle usage. Abdominal: soft, nontender to palpation, no guarding, no appreciable organomegaly Ext: ROM intact. No gross muscle atrophy, no edema, no contractures Neuro: Speech clear, face symmetrical and CN II-XII grossly intact with no noted focal neuro deficits Psych: Alert and oriented to person, place, time, and situation. Appropriate and pleasant affect. Assessment and Plan of Care: Intractable lower back pain -Orthospine surgery following, per RN orthospine surgery team planning to take patient for surgical intervention 05/14/22. -Pain management following -MRI lumbar spine without contrast was completed revealing some degenerative changes to the mid and lower lumbar spine from L5 through S1 and defacement of the central left S1 nerve present. -Symptomatic care and pain management -Fall precautions Hyperlipidemia -Heart healthy diet and continue daily medication regimen with Zetia and rosuvastatin. CODE STATUS: Full code DVT prophylaxis: SCDs Discussed with: Patient, patient's family member at bedside, and RN Anticipated discharge date: Clinical course to determine Anticipated discharge place: Home A total of 35 minutes was spent on the care of this complex patient more than 50% of the time was spent in counseling and care coordination. Patient seen by nurse practitioner independently, I agree with assessment and plan as documented above David Moran MD [facility] Medicine Objective - Vital Signs Vital signs: Vital Signs Temp 98.1 F 05/14/22 08:00 Pulse 77 05/14/22 08:00 Resp 16 05/14/22 08:00 BP 125/70 05/14/22 08:00 Pulse Ox 93 L 05/14/22 08:00 FiO2 Intake & Output 05/13/22 05/14/22 05/14/22 18:59 06:59 18:59 Intake Total 1080 500 Balance 1080 500 Intake: Oral 1080 500 Other: # Voids 2 1 - Labs CBC & Chem 7: 05/11/22 12:56 05/11/22 12:56 Labs: Abnormal Lab Results - Last 24 Hours (Table) 05/13/22 Range/Units 22:45 Urine Protein Trace H (Negative) Urine Glucose (UA) Trace H (Negative) Urine Blood Trace H (Negative) Urine Mucus Occasional H (None) /hpf
[2022-05-14] MEDS: diazePAM 5 MG TAB PO PRN ×2 (16:54→22:25)
[2022-05-15 07:19] VITALS: BP 136/81; PULSE 84; RESP 16; TEMP 97.8
[2022-05-15] MEDS: ENOXAPARIN 40 MG/0.4 ML SYRINGE SQ SCH (08:10)
[2022-05-15] MEDS: EZETIMIBE 10 MG TAB PO SCH (08:10)
[2022-05-15] MEDS: ATORVASTATIN 10 MG TAB PO SCH (08:10)
[2022-05-15] MEDS ORDERED: ONDANSETRON 4 MG/2 ML VIAL ONE (09:24)
[2022-05-15] MEDS ORDERED: SUCCINYLCHOLINE CHLORIDE 100 MG/5 ML SYR IV ONE (09:24)
[2022-05-15] MEDS ORDERED: DEXAMETHASONE SOD PHOSPHATE 10 MG/ML 1 ML VIAL ONE (09:24)
[2022-05-15] MEDS ORDERED: LIDOCAINE 2% INJ 20 MG/ML (2 ML VIAL) ONE (09:24)
[2022-05-15] MEDS ORDERED: ePHEDrine 50 MG/ML 1 ML VIAL ONE (09:24)
[2022-05-15] MEDS ORDERED: fentaNYL (PF) 50 MCG/ML 2 ML AMP ONE (09:24)
[2022-05-15] MEDS ORDERED: ROCURONIUM 10 MG/ML (5 ML VIAL) IV ONE (09:24)
[2022-05-15] MEDS ORDERED: MIDAZOLAM 2 MG/2 ML VIAL ONE (09:24)
[2022-05-15] MEDS ORDERED: PROPOFOL 10 MG/ML 20 ML VIAL IV ONE (09:24)
--- NOTE | 2022-05-15 10:34 | P.PN ---
Progress Note - Text Progress Note Date: 05/15/22 Orthopedic Spine: History of present illness: Patient is a pleasant 56-year-old male who is seen at the bedside following laminectomy performed yesterday. Patient states they are doing well postsurgically. His left lower extremity radiculopathy has significantly improved. He has been able to ambulate to the restroom independently. He feels his left lower extremity weakness has improved. Currently does not complain of nausea, vomiting, fever, or chills. Patient states pain has been adequately controlled. Patient is eating and voiding freely without difficulty. He feels he is ready for discharge home today. He resides in [place]. He is pl anning to stay in town with his mother this week and plans to travel back to [place] this coming Sunday. Physical Exam Laminectomy/Discectomy: Status post surgical day number 1 Patient is awake, alert, and oriented 3 Vital signs stable Good chest excursion with deep inspiration and expiration Dorsiflexion, plantarflexion, and extensor hallucis longus positive sustained bilaterally No signs or symptoms of DVT; no calf pain Dressing is clean, dry, and intact; no erythema, purulence, or signs of infection Assessment: Status post L5-S1 laminectomy and decompression L5-S1 recurrent left paracentral herniated nucleus pulposus L5-S1 severe left neural foraminal stenosis L5-S1 disc desiccation and degenerative disc disease Left lower extremity radiculopathy Acute on chronic back pain L4-5 lumbar facet arthropathy History of previous L5-S1 laminectomy decompression performed in [place] Hyperlipidemia Resides out of state in [place] Plan: 1. Ambulate as tolerated; work with Physical Therapy 2. Continue Pain control with oral medications; descriptions were sent to the pharmacy for hydrocodone 5 mg/325 mg 1 tab every 4 hours as needed for pain, dispense #42 and Cyclobenzaprine 10 mg 1 tab 3 times a day as needed for muscle spasm, dispensed #30. 3. Medicine will continue to manage patient for patient's other medical diagnoses 4. Orthopedic spine standpoint, patient is clear for discharge. We will plan to have the patient follow up this coming 05/19/2022, and outpatient setting for further evaluation at [facility]
--- NOTE | 2022-05-15 17:45 | P.DS ---
Providers Date of admission: 05/11/22 12:26 Expected date of discharge: 05/15/22 Attending physician: Steffi Fernando MD Consults: 05/11/22 12:26 Consult Physician Routine Consulting Provider: Aris Montgomery Consult Reason/Comments: lumbar disc herniation, difficulty walking secondary to pain Do you want consulting provider notified?: Yes 05/12/22 09:07 Consult Physician Urgent Consulting Provider: Praveen Vail Consult Reason/Comments: possible L5/S1 GREG for HNP with radiulopathy Do you want consulting provider notified?: Yes Primary care physician: Physician Nonstaff Hospital Course: Discharge Diagnosis: Intractable back pain, MRI revealing degenerative changes to the mid and lower lumbar spine from L5 through S1 and defacement of the central left S1 nerve present. Status post L5-S1 laminectomy with decompression on 05/14/22. Follow-up in orthopedic office 05/19/22 prior to returning to [place]. Hyperlipidemia. Heart healthy diet and continue daily medication regimen with Zetia and rosuvastatin. Hospital Course: Patient is a very pleasant 56-year-old male with a past medical history of hyperlipidemia and lumbar back surgery. He presented to the emergency department on 05/11/22 with a chief complaint of lower back pain. Patient reports he does have a history of lumbar back surgery but has not had any issues in years. Patient states he is in [place] vacationing and while removing the kayak off the roof of his car he experienced sudden onset of lower back pain radiating shooting pains down his left leg. Patient reports this pain persisted and continued to worsen resulting in difficulty with ambulation. He reports chronic residual numbness to the lateral aspect of the left lower leg and left heel which is unchanged and denies any further or worsening numbness or tingling sensations. Patient denies having any involuntary loss of bowel or bladder and denies any saddle anesthesias. CT revealed no evidence of fracture of the lumbar spine showing disc herniation of L4 and L5 with mild to moderate central canal stenosis. Patient was admitted under our services with consultation to pain management Orthospine surgery team. MRI lumbar spine without contrast was completed revealing some degenerative changes to the mid and lower lumbar spine from L5 through S1 and defacement of the central left S1 nerve present. Patient underwent L4 through L5 epidural steroid injection and left sacroiliac joint injection under fluoroscopic guidance on 05/12/22. Patient continued to have significant intractable lower back pain. He was taken to surgery and underwent revision laminectomy and decompression with partial medial facetectomy and foraminotomy for decompression and revision discectomy for decompression of L5 through S1 by Dr. Montgomery on 05/14/22. Today is day1 postop. Patient is doing well. Postoperative pain is controlled. Patient ambulating in the room without difficulties and reports no difficulty with urination. Medically patient is stable for discharge at this time. Patient has been cleared by orthospine surgery team for discharge. Patient reports he is going to remain in [place] until follow-up appointment with orthopedic surgery office on 05/19/22 prior to returning to [place]. Physical exam: Vital signs reviewed and stable. General: Nontoxic, no distress and appears stated age. Derm: Skin warm and dry, normal coloration for ethnicity. Head: Atraumatic, normocephalic and symmetric. Eyes: EOMs intact, no lid lag, and anicteric sclera Mouth: no lip lesions, mucus membranes moist Cardiovascular: regular rate and rhythm with normal S1S2, no murmur, positive p osterior tibial pulses bilaterally, and cap refill < 2 seconds. Lungs: Respirations even, regular, and unlabored on room air. Lungs CTA bilaterally, no rhonchi, no rales, no wheezing, and no accessory muscle usage. Abdominal: soft, nontender to palpation, no guarding, no appreciable organomegaly Ext: ROM intact. No gross muscle atrophy, no edema, no contractures Neuro: Speech clear, face symmetrical and CN II-XII grossly intact with no noted focal neuro deficits Psych: Alert and oriented to person, place, time, and situation. Appropriate and pleasant affect. A total of 34 minutes of time were spent preparing this complex discharge summary. Pt was discharged on 05/15/22 at 9:04 AM. Patient Condition at Discharge: Stable Plan - Discharge Summary Discharge Rx Participant: No ([facility]) New Discharge Prescriptions: New Cyclobenzaprine [Flexeril] 10 mg PO TID PRN #30 tab PRN Reason: Spasms HYDROcodone/APAP 5-325MG [Eastman 5-325] 1 tab PO Q4HR PRN 7 Days #42 tab PRN Reason: Pain Continue Ezetimibe [Zetia] 10 mg PO DAILY Rosuvastatin Calcium 5 mg PO DAILY Discharge Medication List Ezetimibe [Zetia] 10 mg PO DAILY 05/11/22 [History] Rosuvastatin Calcium 5 mg PO DAILY 05/11/22 [History] Cyclobenzaprine [Flexeril] 10 mg PO TID PRN #30 tab 05/14/22 [Rx] HYDROcodone/APAP 5-325MG [Eastman 5-325] 1 tab PO Q4HR PRN 7 Days #42 tab 05/14/22 [Rx] Follow up Appointment(s)/Referral(s): Aris Montgomery DO [Doctor of Osteopathic Medicine] - 05/19/22 10:45 am (Patient should follow up with me in 1 week's time if he is still in town. If he returns home to [facility] he should follow-up with his primary care physician and spine surgeon within the next 3 weeks) Jacky Granados, LEO [PHYSICIAN SIGNAL OPERATOR TECHNICAL] - As Needed (Patient may follow-up with Jacky Granados PA-C or Dr. Edmund Montgomery at [facility] on an as needed basis following discharge. ) Nonstaff,Physician [Primary Care Provider] - 1-2 days Patient Instructions/Handouts: *Surgery [facility] - ([facility]) Lumbar Surgery Discharge Instructions, Lumbar Disc Herniation (DC) Activity/Diet/Wound Care/Special Instructions: Keep site clean. May ice area 30 minutes at a time up to 6 times a day May shower with waterproof Tegaderm intact. Do not soak in a tub. After 72 hours postoperatively, patient May remove dressing and then may shower with area uncovered. Leave glue intact and allow it to fray off on its own. May ambulate as tolerated. Avoid heavy or rigorous activity. No repetitive bending twisting or lifting. No overhead work. 1. Patient will plan to follow with his spine surgeon in [place] following discharge from the hospital and returning back to [place] 2. Patient should take MRI imaging of his lumbar spine on CD along with the report with him back to [place] Discharge/Stand Alone Forms: Anes Pain/[facility] Instructions Discharge Disposition: HOME SELF-CARE
== END 2022-05-15 10:46 | disposition home or self-care (01) | DRG 519 ==
LOC: EC 08:33 → 6NMEDSUR 12:26 → 4SSUR 16:46 → OBSVTOIN 05-13 16:32 → UNDODISOB 05-15 10:46
PROVIDERS: ADMIT Internal Medicine; ATTEND Internal Medicine
PROC: 01NB0ZZ Release Lumbar Nerve, Open Approach (ICD-10-PCS; 2022-05-12)
PROC: 01NR0ZZ Release Sacral Nerve, Open Approach (ICD-10-PCS; 2022-05-12)
PROC: 3E0R33Z Introduction of Anti-inflammatory into Spinal Canal, Percutaneous Approach (ICD-10-PCS; 2022-05-12)
PROC: 3E0U33Z Introduction of Anti-inflammatory into Joints, Percutaneous Approach (ICD-10-PCS; 2022-05-12)
PROC: 8E0WXBF Computer Assisted Procedure of Trunk Region, With Fluoroscopy (ICD-10-PCS; 2022-05-12)
PROC: B01B1ZZ Fluoroscopy of Spinal Cord using Low Osmolar Contrast (ICD-10-PCS; 2022-05-12)
PROC: 0SB40ZZ Excision of Lumbosacral Disc, Open Approach (ICD-10-PCS; principal; 2022-05-12 14:45)
PROC: 00NY0ZZ Release Lumbar Spinal Cord, Open Approach (ICD-10-PCS; 2022-05-12 14:45)
PROC: 8E0WXBF Computer Assisted Procedure of Trunk Region, With Fluoroscopy (ICD-10-PCS; 2022-05-14)
DX: M51.17 Intervertebral disc disorders with radiculopathy, lumbosacral region (principal); M47.16 Other spondylosis with myelopathy, lumbar region; M47.26 Other spondylosis with radiculopathy, lumbar region; M79.18 Myalgia, other site; M48.061 Spinal stenosis, lumbar region without neurogenic claudication; G89.29 Other chronic pain; M48.07 Spinal stenosis, lumbosacral region; E78.5 Hyperlipidemia, unspecified; X50.9XXA Other and unspecified overexertion or strenuous movements or postures, initial encounter; Z79.899 Other long term (current) drug therapy; Z82.49 Family history of ischemic heart disease and other diseases of the circulatory system
CPT/HCPCS: 27096; 62323; 71045; 72020; 72131; 72148; 72192; 80048; 81001; 85025; 85610; 93005; 96372; 96374; 99285